=== PATIENT | female | born 1940 | race Caucasian/White ===

== ENCOUNTER 2022-05-11 08:27 | Outpatient (CLI) | payer OTHER | END 2022-05-11 08:49 | disposition home or self-care (01) | LOC: TOM 08:27 | PROVIDERS: ATTEND Internal Medicine Gastroenterology | DX: K62.5 Hemorrhage of anus and rectum (principal); R19.7 Diarrhea, unspecified; R19.4 Change in bowel habit; R10.30 Lower abdominal pain, unspecified; R93.3 Abnormal findings on diagnostic imaging of other parts of digestive tract; R10.31 Right lower quadrant pain; K57.30 Diverticulosis of large intestine without perforation or abscess without bleeding ==

== ENCOUNTER 2022-05-20 07:59 | Outpatient (CLI) | payer OTHER | END 2022-05-20 08:04 | disposition home or self-care (01) | LOC: RX STUDY 07:59 | PROVIDERS: ATTEND Internal Medicine Gastroenterology | DX: R19.7 Diarrhea, unspecified (principal); R11.2 Nausea with vomiting, unspecified ==